=== PATIENT | female | born 1940 | race Caucasian/White ===

== ENCOUNTER 2020-11-17 04:00 | Emergency (ER) | payer BC, MEDICARE ==
--- NOTE | 2020-11-17 04:06 | EDM.PDOC ---
ED HPI GENERAL MEDICAL PROBLEM - General Stated Complaint: allergic reaction Time Seen by Provider: 11/17/20 04:06 Source of Information: Reports: Patient History Limitations: Reports: No Limitations - History of Present Illness INITIAL COMMENTS - FREE TEXT/NARRATIVE: 80-year-old lady came to the emergency department by private vehicle for evaluation of hives, pruritus of the hands, and a feeling of swelling of her lips. She states that on Tuesday afternoon, approximately 36 hours ago, she had an outbreak of hives on her legs, arms, trunk front and back. She took 25 mg of diphenhydramine and had good relief. She states that she woke up just prior to come to the emergency department with this sensation of swelling in her lips and a new outbreak of hives particularly in the medial thighs, right much greater than left. She states that she cannot think of any new foods, she feels well and has no viral symptoms including fever, chills, change in bowel or bladder habits, and she cannot think of any recent insect bites, sick contacts, new foods, change in detergents, and she has not taking any new medications. She does take a baby aspirin every night with supper. She does have an occasio nal cough associated with deep inspiration. She also has had a very stressful week. Past medical history is significant for fibromyalgia and a thyroidectomy. Review of her medical record shows that she has an allergy to cortisone. - Related Data Allergies Allergy/AdvReac Type Severity Reaction Status Date / Time cortisone [Cortisone] Allergy FLUSHING Verified 08/08/13 12:56 ondansetron HCl [From Zofran] Allergy FLUSHING Verified 08/08/13 12:56 Sulfa (Sulfonamide Allergy Hives Verified 08/08/13 12:56 Antibiotics) Home Meds: Home Meds ALPRAZolam [Xanax] 0.5 mg PO ASDIRECTED 08/08/13 [History] Aspirin 325 mg PO Q6H PRN 08/08/13 [History] Aspirin [Children's Aspirin] 81 mg PO DAILY 08/08/13 [History] Calcium Carb/Vit D3/Minerals [Calcium-Vit D-Minerals Chew Tb] 1 each PO DAILY 08/08/13 [History] Levothyroxine [Synthroid] 88 mcg PO ASDIRECTED 08/08/13 [History] Metoprolol Succinate [Toprol XL] 50 mg PO DAILY 08/08/13 [History] Multivitamin [Chewable Multi Vitamin] 1 each PO DAILY 08/08/13 [History] Omeprazole [Prilosec] 20 mg PO DAILY 08/08/13 [History] ED ROS ALLERGIC REACTION - Review of Systems Review Of Systems: See Below Constitutional: Reports: No Symptoms HEENT: Reports: Other (Sensation of swelling of the lips) Respiratory: Reports: No Symptoms Cardiovascular: Reports: No Symptoms Endocrine: Reports: No Symptoms GI/Abdominal: Reports: No Symptoms : Reports: No Symptoms Musculoskeletal: Reports: No Symptoms Skin: Reports: Urticaria Neurological: Reports: No Symptoms Psychiatric: Reports: Anxiety Hematologic/Lymphatic: Reports: No Symptoms Immunologic: Reports: No Symptoms ED EXAM GENERAL NO PERIP PULSE - Physical Exam Exam: See Below Exam Limited By: No Limitations General Appearance: Alert, WD/WN, No Apparent Distress, Anxious Eye Exam: Bilateral Eye: EOMI Throat/Mouth: Normal Inspection, Normal Lips, Normal Teeth, Normal Gums, Normal Oropharynx, Other (The patient's lips are not obviously swollen or erythemic). No: Dysphagia, Inflammation Head: Atraumatic, Normocephalic Neck: Normal Inspection. No: Lymphadenopathy (R), Lymphadenopathy (L) Respiratory/Chest: No Respiratory Distress, Lungs Clear, Normal Breath Sounds Cardiovascular: Normal Peripheral Pulses, Regular Rate, Rhythm, No Edema, No Murmur GI/Abdominal: Normal Bowel Sounds, Non-Tender Back Exam: Normal Inspection. No: CVA Tenderness (R), CVA Tenderness (L) Extremities: Normal Inspection, No Pedal Edema Neurological: Alert, Oriented, CN II-XII Intact, Normal Cognition Psychiatric: Anxious Skin Exam: Other (Story area on the bilateral inner thighs, right greater than left, mild erythema of the hands with some erythema of the palms, scattered mild urticaria on the back) Course - Vital Signs Text/Narrative:: Patient was given 25 mg of Benadryl by mouth. She had near complete resolution of the Story area and the sensation of the fullness/swelling of her lips has nearly fully resolved. She states that she continues to have some subjective swelling of her fingers. She never had any difficulty breathing or tightness in her throat. Last Recorded V/S: Last Vital Signs Temp 37.4 C 11/17/20 04:37 Pulse 112 H 08/16/21 04:37 Resp 16 11/17/20 04:37 BP 163/90 H 11/17/20 04:37 Pulse Ox 96 11/17/20 04:37 - Orders/Labs/Meds Labs: Laboratory Tests 11/17/20 11/17/20 Range/Units 04:45 04:45 WBC 10.7 H (3.0-10.3) x10-3/uL RBC 4.88 (3.60-5.20) x10(6)uL Hgb 14.5 (11.4-15.5) g/dL Hct 43.5 (34.2-48.2) % MCV 89.2 (76.7-100.5) fL MCH 29.6 (23.9-33.9) pg MCHC 33.3 (31.9-34.8) g/dL RDW 13.1 (12.3-16.5) % Plt Count 264 (151-488) x10(3)uL MPV 6.1 L (7.1-12.4) fL Neut % (Auto) 75.1 (30.8-76.2) % Lymph % (Auto) 16.4 L (18.4-52.1) % [place] % (Auto) 6.4 (4.4-15.7) % Eos % (Auto) 1.4 (0.6-8.1) % Baso % (Auto) 0.7 (0.2-1.5) % Neut # (Auto) 8.0 H (1.5-6.3) x10-3/uL Lymph # (Auto) 1.8 (1.0-4.4) x10-3/uL [place] # (Auto) 0.7 (0.3-1.0) x10-3/uL Eos # (Auto) 0.1 (0.0-0.8) x10-3/uL Baso # (Auto) 0.1 (0.0-0.1) x10-3/uL Sodium 141 (135-145) mmol/L Potassium 3.7 (3.5-5.3) mmol/L Chloride 104 (100-110) mmol/L Carbon Dioxide 26 (21-32) mmol/L BUN 15 (7-18) mg/dL Creatinine 0.9 (0.55-1.02) mg/dL Est Cr Clr Drug Dosing 45.89 mL/min Estimated GFR (MDRD) > 60 (>60) BUN/Creatinine Ratio 16.7 (9-20) Glucose 115 (80-116) mg/dL Calcium 9.0 (8.6-10.2) mg/dL Total Bilirubin 0.7 (0.1-1.3) mg/dL AST 21 (5-25) IU/L ALT 31 (12-36) U/L Alkaline Phosphatase 58 (56-112) IU/L Total Protein 7.5 (6.0-8.0) g/dL Albumin 3.6 (3.2-4.6) g/dL Globulin 3.9 g/dL Albumin/Globulin Ratio 0.9 Meds: Medications Discontinued Medications Generic Name Dose Route Start Last Admin Trade Name Freq PRN Reason Stop Dose Admin Diphenhydramine HCl 25 mg 11/17/20 04:21 11/17/20 04:30 Diphenhydramine 25 Mg Cap PO 11/17/20 04:22 25 mg ONETIME ONE Administration Departure - Departure Time of Disposition: 06:26 Disposition: Home, Self-Care 01 Clinical Impression: Acute urticaria, Anaphylaxis - Discharge Information *PRESCRIPTION DRUG MONITORING PROGRAM REVIEWED*: Not Applicable *COPY OF PRESCRIPTION DRUG MONITORING REPORT IN PATIENT COLLIN: Not Applicable Instructions: Hives, Anaphylactic Reaction, Adult Referrals: Eduard Gutierrez MD [Primary Care Provider] - Additional Instructions: Patient states that she has used Claritin in the past. I advised the patient to pickler helper some Claritin on the way home from the hospital and begin taking Claritin daily as directed by the bottle. I advised her to follow-up with her primary care physician. Advised her to try to determine if she has had any exposure such as bug bites, new foods/medicines, and/or stress. Sepsis Event Note (ED) - Focused Exam Vital Signs: Vital Signs Temp Pulse Resp BP Pulse Ox 11/17/20 04:37 37.4 C 112 H 16 163/90 H 96 11/17/20 04:10 37.4 C 112 H 20 153/107 H 98
[2020-11-17] MEDS ORDERED: diphenhydrAMINE 25 MG Cap PO ONE (04:21)
== END 2020-11-17 06:32 | disposition home or self-care (01) ==
LOC: FB.ED 04:00
DX: T78.2XXA Anaphylactic shock, unspecified, initial encounter (principal); Z88.8 Allergy status to other drugs, medicaments and biological substances; Z88.2 Allergy status to sulfonamides; Z79.82 Long term (current) use of aspirin; Z79.899 Other long term (current) drug therapy
CPT/HCPCS: 36415; 80053; 85025; 99283; A9270